=== PATIENT | female | born 1930 | race Caucasian/White ===

== ENCOUNTER 2017-03-26 09:39 | Emergency (ER) | payer MEDICARE, OTHER ==
[~2017-03-26] VITALS: Ht 149.9 cm; Wt 56.2 kg
[~2017-03-26 09:39] MED LIST: ACET325T9 PO; AMLO1TAB95 PO; ASPI-482 PO; ATOR20TA58 PO; CALC-326 PO; CITA40TA5 PO; FURO20TA3 PO; FURO40TA4 PO; GUAI600T47 PO; LACT1CAP6 PO; MIRT15TA3 PO; OMEP40CA5 PO; POTA10IV IV; RALO60TA PO; VIT1TABL32 PO
--- NOTE | 2017-03-26 09:59 | PHYS DOC ---
Past Medical History Past Medical History: Anxiety, Arthritis, Depression, GERD, Hypertension, Hypothyroid Additional Past Medical Histor: OSTEOPOROSIS Past Surgical History: Hip Replacement, Other Additional Past Surgical Histo: Plates bilat elbows,Thyroid,R)ovary removed. Alcohol Use: None Drug Use: None Adult General Chief Complaint Chief Complaint: MECHANICAL FALL HPI HPI Patient is a 87 year old female with history of hypothyroidism, hypertension, anxiety, arthritis, who presents today from a [facility] status post falling. Patient states she was transferring herself from her wheelchair to the toilet when she slipped and fell. Patient denies any loss of consciousness. Patient states she has a contusion to the forehead and is complaining of mild right hip pain and right forearm pain. Review of Systems Review of Systems Constitutional: Denies fever or chills [] Eyes: Denies change in visual acuity, redness, or eye pain [] HENT: Denies nasal congestion or sore throat [] Respiratory: Denies cough or shortness of breath [] Cardiovascular: No additional information not addressed in HPI [] GI: Denies abdominal pain, nausea, vomiting, bloody stools or diarrhea [] : Denies dysuria or hematuria [] Musculoskeletal: Right hip pain and right forearm pain Integument: Right forearm abrasions Neurologic: Forehead contusion Current Medications Current Medications Current Medications Medications (Trade) Dose Ordered Sig/Allen Start Time Stop Time Status Last Admin Dose Admin Diphtheria/ Tetanus/Acell Pertussis (Boostrix) 0.5 ml ONCE ONCE 03/26/17 10:00 03/26/17 10:01 DC 03/26/17 10:19 0.5 ML Fentanyl Citrate (Fentanyl 2ml Vial) 25 mcg 1X ONCE 03/26/17 10:00 03/26/17 10:01 DC 03/26/17 10:20 25 MCG Neomycin/ Polymyxin/ Bacitracin (Triple Antibiotic Ointment) 2 pkt 1X ONCE 03/26/17 10:00 03/26/17 10:01 DC 03/26/17 10:19 2 PKT Allergies Allergies Allergies Coded Allergies Type Severity Reaction Last Updated Verified adhesive Allergy Intermediate redness/hives 02/07/15 Yes Physical Exam Physical Exam Constitutional: Well developed, well nourished, no acute distress, non-toxic appearance. [] HENT: Normocephalic, atraumatic, bilateral external ears normal, oropharynx moist, no oral exudates, nose normal. [] Eyes: PERRLA, EOMI, conjunctiva normal, no discharge. [] Neck: Normal range of motion, no tenderness, supple, no stridor. [] Cardiovascular:Heart rate regular rhythm, no murmur [] Lungs & Thorax: Bilateral breath sounds clear to auscultation [] Abdomen: Bowel sounds normal, soft, no tenderness, no masses, no pulsatile masses. [] Skin: Warm, dry, small areas of abrasions noted on patient's forearm and dorsal hand. Small contusion noted on the right forehead. Back: No tenderness, no CVA tenderness. [] Extremities: Hip is stabilized with a pair of sheets, no obvious deformity noted on bilateral lower extremities. Mild tenderness noted on palpation of the right lateral hip. Limited range of motion to the hips due to pain. +2 bilateral pedal pulses. Cap refill less than 2 seconds bilateral lower extremities. Full range of motion of the right upper extremity. Neurovascular exam intact to the right upper extremity. Neurologic: Alert and oriented X 3, normal motor function, normal sensory function, no focal deficits noted. Cranial nerves II through XII intact Psychologic: Affect normal, judgement normal, mood normal. [] Current Patient Data Vital Signs Vital Signs Date Time Temp Pulse Resp B/P (MAP) Pulse Ox O2 Delivery O2 Flow Rate FiO2 03/26/17 10:59 64 18 147/67 (93) 94 Room Air 03/26/17 09:39 97.8 97.8 EKG EKG [] Radiology/Procedures Radiology/Procedures []PROCEDURE: FOREARM RIGHT; SHOULDER 2+V RIGHT Right shoulder, 3 views, 03/26/2017: History: Trauma, pain The bony structures are demineralized. No fracture or dislocation is identified. There are mild degenerative changes at the shoulder. IMPRESSION: 1. Demineralization. 2. No acute bony abnormality is detected. Right forearm, 2 views, 03/26/2017: The bony structures are demineralized. No forearm fracture is identified. There is a surgical screw related to the distal humerus. There are degenerative changes at the elbow joint. IMPRESSION: No acute bony abnormality is detected. DICTATED and SIGNED BY: CLAUDIO RAMOS MD DATE: 03/26/17 1106 CC: GUILHERME PETERSON MD; KIARA DAS APRN ~ PROCEDURE: CT HEAD AND CERVICAL SPINE WO CT of the head without contrast, 03/26/2017: History: Fall, forehead hematoma Comparison is made to a study from 05/26/2015. There is a moderate-sized scalp hematoma in the right frontal region. No underlying fracture is identified. There is moderate cerebral atrophy. There are mild bilateral deep white matter lucencies compatible with chronic ischemic change. The ventricles are mildly prominent on a compensatory basis. There is no evidence of acute intracranial hemorrhage or mass effect. IMPRESSION: 1. Chronic findings as described above. 2. No acute intracranial abnormality is detected. CT of the cervical spine without contrast, 03/26/2017: Noncontrast scans were obtained with multiplanar reconstructions produced. There is disc space narrowing with moderate marginal spurring throughout the mid and lower cervical spine. There are moderate hypertrophic degenerative changes involving multiple facet joints bilaterally. There is moderate degenerative change at the C1-2 articulation with moderate ligamentous thickening along the posterior aspect of the odontoid process. No acute fracture or dislocation is identified. The spurring is causing foraminal encroachment bilaterally particularly at C3-4 and C4-5. No high-grade central spinal stenosis is evident. Incidental note is made that the left lobe of the thyroid gland is enlarged, heterogeneous and contains calcifications. IMPRESSION: 1. Moderately severe multilevel degenerative change. 2. No acute bony abnormality is detected. PQRS Compliance Statement: One or more of the following individualized dose reduction techniques were utilized for this examination: 1. Automated exposure control 2. Adjustment of the mA and/or kV according to patient size 3. Use of iterative reconstruction technique DICTATED and SIGNED BY: CLAUDIO RAMOS MD DATE: 03/26/17 1016 CC: GUILHERME PETERSON MD; KIARA DAS APRN ~ Course & Med Decision Making Course & Med Decision Making Pertinent Labs and Imaging studies reviewed. (See chart for details) This is a 87-year-old female patient coming from a [facility] status post falling this morning. Patient states she was transferring from her wheelchair to the toilet when she fell. Patient denies any loss of consciousness. Patient is alert and oriented 3. CT of the head and cervical spine were negative for any acute findings. X-rays of the right hip with pelvic were negative for any acute findings, x-rays of the right upper extremity were negative for any acute findings. Patient was [facility] to the [facility]. Tylenol recommended for pain. Recommended nursing staff at the [facility] to help patient with transfers. Dragon Disclaimer Dragon Disclaimer This electronic medical record was generated, in whole or in part, using a voice recognition dictation system. Departure Departure Impression: Primary Impression: Fall from standing Additional Impressions: Forehead contusion Contusion of upper limb, right Contusion of right hip Superficial bruising of upper limb Disposition: 01 HOME, SELF-CARE Condition: STABLE Referrals: GUILHERME PETERSON MD (PCP) follow up with your doctor in one week Patient Instructions: Contusion, [id number], Fall Prevention and Home Safety Additional Instructions: Sri Correia was seen status post falling. Please provided this patient with assistance in all her transfers. Her x-rays of the right upper extremity, right hip with bilateral pelvic, and CT of the head and cervical spine were negative for any acute findings. She is to follow-up with her own doctor in one week. Apply ice to the forehead contusion 15 minutes on and 15 minutes. Apply Neosporin to the bruises twice a day. Problem Qualifiers Primary Impression: Fall from standing Encounter type: initial encounter Qualified Codes: W19.XXXA - Unspecified fall, initial encounter Additional Impressions: Forehead contusion Encounter type: initial encounter Qualified Codes: S00.83XA - Contusion of other part of head, initial encounter Contusion of upper limb, right Encounter type: initial encounter Qualified Codes: S40.021A - Contusion of right upper arm, initial encounter Contusion of right hip Encounter type: initial encounter Qualified Codes: S70.01XA - Contusion of right hip, initial encounter Superficial bruising of upper limb Encounter type: initial encounter Laterality: right Qualified Codes: S40.021A - Contusion of right upper arm, initial encounter KIARA DAS APRN Mar 26, 2017 09:59
[2017-03-26] MEDS ORDERED: fentaNYL PF VIAL 100 MCG/2 ML VIAL IM ONE (10:00)
[2017-03-26] MEDS ORDERED: NEOMY/BACITR/POLYMYXIN OINT PACKET. TP ONE (10:00)
[2017-03-26] MEDS ORDERED: DIPHTH,PERTUSS(ACELL),TET TOX 0.5 ML DISP.SYRIN. VAX IM ONE (10:00)
--- NOTE | 2017-03-26 10:26 | RAD ---
CT of the head without contrast, 03/26/2017: History: Fall, forehead hematoma Comparison is made to a study from 05/26/2015. There is a moderate-sized scalp hematoma in the right frontal region. No underlying fracture is identified. There is moderate cerebral atrophy. There are mild bilateral deep white matter lucencies compatible with chronic ischemic change. The ventricles are mildly prominent on a compensatory basis. There is no evidence of acute intracranial hemorrhage or mass effect. IMPRESSION: 1. Chronic findings as described above. 2. No acute intracranial abnormality is detected. CT of the cervical spine without contrast, 03/26/2017: Noncontrast scans were obtained with multiplanar reconstructions produced. There is disc space narrowing with moderate marginal spurring throughout the mid and lower cervical spine. There are moderate hypertrophic degenerative changes involving multiple facet joints bilaterally. There is moderate degenerative change at the C1-2 articulation with moderate ligamentous thickening along the posterior aspect of the odontoid process. No acute fracture or dislocation is identified. The spurring is causing foraminal encroachment bilaterally particularly at C3-4 and C4-5. No high-grade central spinal stenosis is evident. Incidental note is made that the left lobe of the thyroid gland is enlarged, heterogeneous and contains calcifications. IMPRESSION: 1. Moderately severe multilevel degenerative change. 2. No acute bony abnormality is detected. PQRS Compliance Statement: One or more of the following individualized dose reduction techniques were utilized for this examination: 1. Automated exposure control 2. Adjustment of the mA and/or kV according to patient size 3. Use of iterative reconstruction technique
--- NOTE | 2017-03-26 11:08 | RAD ---
Pelvis with right hip, 3 views, 03/26/2017: History: Fall, pain The bony structures are demineralized. There are bilateral bipolar hip prostheses in place. No acute fracture or dislocation is identified. There are mild periarticular dystrophic calcifications on the right. Degenerative changes are noted in the lower lumbar spine. IMPRESSION: 1. Demineralization. 2. Bilateral hip prostheses are in satisfactory positions. 3. No acute bony abnormality is detected.
--- NOTE | 2017-03-26 11:10 | RAD ---
Right shoulder, 3 views, 03/26/2017: History: Trauma, pain The bony structures are demineralized. No fracture or dislocation is identified. There are mild degenerative changes at the shoulder. IMPRESSION: 1. Demineralization. 2. No acute bony abnormality is detected. Right forearm, 2 views, 03/26/2017: The bony structures are demineralized. No forearm fracture is identified. There is a surgical screw related to the distal humerus. There are degenerative changes at the elbow joint. IMPRESSION: No acute bony abnormality is detected.
[2017-03-26 11:52] VITALS: BP 142/65
--- NOTE | 2017-03-26 11:57 | RAD ---
Right hand, 3 views, 03/26/2017: History: Fall, pain The exam is suboptimal as the patient was unable to straighten all of her fingers. There is severe bony demineralization. No acute fracture is identified. There are moderate degenerative changes at scattered interphalangeal joints and along the radial aspect of the wrist. IMPRESSION: 1. Severe bony demineralization. 2. No acute bony abnormality is detected, although patient positioning is suboptimal.
== END 2017-03-26 12:03 | disposition home or self-care (01) ==
LOC: ER 09:39
DX: S00.83XA Contusion of other part of head, initial encounter (principal); S40.021A Contusion of right upper arm, initial encounter; S70.01XA Contusion of right hip, initial encounter; S50.811A Abrasion of right forearm, initial encounter; S60.511A Abrasion of right hand, initial encounter; F41.9 Anxiety disorder, unspecified; M19.90 Unspecified osteoarthritis, unspecified site; K21.9 Gastro-esophageal reflux disease without esophagitis; I10 Essential (primary) hypertension; E03.9 Hypothyroidism, unspecified; M81.0 Age-related osteoporosis without current pathological fracture; F32.9 Major depressive disorder, single episode, unspecified; Z91.048 Other nonmedicinal substance allergy status; W01.0XXA Fall on same level from slipping, tripping and stumbling without subsequent striking against object, initial encounter; Y93.89 Activity, other specified; Y92.129 Unspecified place in nursing home as the place of occurrence of the external cause; Y99.8 Other external cause status
CPT/HCPCS: 70450; 72125; 73030; 73090; 73130; 73502; 90471; 90715; 96372; 99284; J3010

== ENCOUNTER 2017-04-21 14:37 | Emergency (ER) | payer MEDICARE, OTHER ==
[2017-04-21 14:49] VITALS: BP 159/65
[2017-04-21] MEDS ORDERED: DIPHTH,PERTUSS(ACELL),TET TOX 0.5 ML DISP.SYRIN. VAX IM ONE (15:30)
--- NOTE | 2017-04-21 15:31 | PHYS DOC ---
Past Medical History Past Medical History: Anxiety, Arthritis, Depression, GERD, High Cholesterol, Hypertension, Hypothyroid Additional Past Medical Histor: OSTEOPOROSIS, contracture R hand, insomnia Past Surgical History: Hip Replacement, Other Additional Past Surgical Histo: Plates bilat elbows,Thyroid,R)ovary removed. Alcohol Use: None Drug Use: None Adult General Chief Complaint Chief Complaint: MECHANICAL FALL HPI HPI Patient is a pleasant 87-year-old female with a history of hyperlipidemia, hypertension, major depressive disorder, contracture of the right hand, anxiety disorder, constipation, difficulty walking, reflux, insomnia, generalized weakness who presents with a fall from standing. She is in her home which is an assisted living facility she lives by her self and she expresses up and fall from a standing position hitting her head on a coffee table. She denies any loss of conscious, denies any seizure activity after the event. Denies any amnesia to the event. Patient has had multiple falls over last several weeks for similar presentation. She denies chest pain, abdominal pain before after event. Also denies any new neurologic deficits to include weakness or numbness and tingling of the extremities prior or after the events. Patient is not on any blood thinning medications per report or on the group home paperwork provided with EMS evaluation. Pain is minimal at this point but primarily over the posterior left scalp over the parietal lobe and in the neck. Patient denies any paresthesias even transiently. Review of Systems Review of Systems Constitutional: Denies fever or chills [] Eyes: Denies change in visual acuity, redness, or eye pain [] HENT: Denies nasal congestion or sore throat [] Respiratory: Denies cough or shortness of breath [] Cardiovascular: No additional information not addressed in HPI [] GI: Denies abdominal pain, nausea, vomiting, bloody stools or diarrhea [] : Denies dysuria or hematuria [] Musculoskeletal: Patient mainly complains of neck pain and mild headache. Integument: Denies rash or skin lesions [] Neurologic: She has a complaint of headache over the heart scalp she hit on the coffee table without, focal weakness or sensory changes [] Endocrine: Denies polyuria or polydipsia [] Current Medications Current Medications Current Medications Medications (Trade) Dose Ordered Sig/Allen Start Time Stop Time Status Last Admin Dose Admin Acetaminophen (Tylenol) 1,000 mg 1X ONCE 04/21/17 15:45 04/21/17 15:46 DC 04/21/17 15:42 1,000 MG Diphtheria/ Tetanus/Acell Pertussis (Boostrix) 0.5 ml ONCE ONCE 04/21/17 15:30 04/21/17 15:31 DC 04/21/17 15:38 0.5 ML Allergies Allergies Allergies Coded Allergies Type Severity Reaction Last Updated Verified adhesive Allergy Intermediate redness/hives 02/07/15 Yes Physical Exam Physical Exam Vital signs recorded on the chart patient noted to be hypertensive which is chronic for patient. Constitutional: Well developed, well nourished, patient is no acute distress mildly cachectic but awake alert and oriented 4 and spry for age. HENT: Normocephalic, scalp laceration noted over the left posterior occiput measuring about 1.7 cm x 2 cm and a stable pattern bilateral external ears normal, oropharynx moist, no oral exudates, nose normal. No hemotympanum [] Eyes: PERRLA, EOMI, conjunctiva normal, no discharge. [] Neck: Normal range of motion, patient does exhibit some mild tenderness to palpation over C7 C8. Cardiovascular:Heart rate regular rhythm, no murmur [] Lungs & Thorax: Bilateral breath sounds clear to auscultation [] Abdomen: Bowel sounds normal, soft, no tenderness, no masses, no pulsatile masses. [] Skin: Warm, dry, no erythema, no rash. [] Back: No tenderness, no CVA tenderness. [] Extremities: No tenderness, no cyanosis, no clubbing, ROM intact, no edema. [] Neurologic: Alert and oriented X 3, normal motor function, normal sensory function, no focal deficits noted. [] Psychologic: Affect normal, judgement normal, mood normal. [] Current Patient Data Vital Signs Vital Signs Date Time Temp Pulse Resp B/P (MAP) Pulse Ox O2 Delivery O2 Flow Rate FiO2 04/21/17 14:49 97.5 78 18 159/65 (96) 90 Room Air 97.5 EKG EKG [] Radiology/Procedures Radiology/Procedures [] [facility] [address] [place] [address] IMAGING REPORT Signed PATIENT: PIA REINOSO ACCOUNT: [id number] : 1930 LOCATION: ER AGE: 87 SEX: F EXAM STATUS: REG ER ORD. PHYSICIAN: RYANN HEREDIA MD REASON: trauma PROCEDURE: CT HEAD AND CERVICAL SPINE WO CT HEAD WITHOUT [id number]/16/2017 5:27 PM Indication: Head trauma Comparison: CT of the head without contrast March 26, 2017 Procedure: Multidetector CT imaging of the head was performed without the administration of contrast. Findings: Senescent changes including global atrophy and changes of chronic small vessel disease are similar. There is no evidence of acute intracranial hemorrhage. There is no evidence of acute territorial infarction. Please note that CT is limited for evaluation of acute ischemia. No mass effect or midline shift is identified . The ventricles and basilar cisterns have a stable appearance. No new abnormal extra-axial fluid collections are seen. No acute osseous changes are identified. Small right posterior scalp hematoma noted. Impression: No evidence of acute intracranial abnormality CT of the cervical spine without contrast 04/21/2017 Indication: Head trauma Comparison study: CT of the cervical spine March 26, 2017. Procedure: Multidetector CT imaging of cervical spine was performed without contrast Findings: No evidence of acute fracture or alignment abnormality of the cervical spine is identified. Diffuse osteopenia is noted. This is similar to prior exam. Note that the degree of osteopenia can limit sensitivity of CT for nondisplaced fractures. Grossly stable appearing degenerative changes of the cervical spine are noted. The craniocervical junction are unchanged. Vertebral body heights appear preserved. Diffuse disc space narrowing diffuse facet arthrosis is similar to comparison exam. Enlargement of the left thyroid gland is again noted, similar to prior study. Impression: Degenerative changes of the cervical spine without evidence of acute fracture or alignment abnormality. PQRS Compliance Statement: One or more of the following individualized dose reduction techniques were utilized for this examination: 1. Automated exposure control 2. Adjustment of the mA and/or kV according to patient size 3. Use of iterative reconstruction technique DICTATED and SIGNED BY: THOMAS LLOYD MD DATE: 04/21/17 1602 CC: MARE FRAUSTO MD; RYANN HEREDIA MD Course & Med Decision Making Course & Med Decision Making Pertinent Labs and Imaging studies reviewed. (See chart for details) EKG timed 1450 p.m. 04/21/2017 demonstrates normal sinus rhythm with a p.m. QRS heart rate of 76 OH interval 134 which is normal, QRS width of 77 normal, QTC which is normal for her age normal. Patient has not specific T wave flattening in all leads, premature atrial contractions on occasion. No evidence of ST segment depression or similar elevation consistent with ischemia. EKG read by me [] Patient had a mechanical fall from standing at her place of living. She denies any loss of consciousness and her neuro exam on initial presentation was normal and at baseline. Patient has clear memories of the injury. Denies any seizure activity or pedal blood thinning medication. CT scan of the head and neck were ordered upon arrival as well as irrigation and cleaning of the wound of the scalp which will need repair. CT scan at approximately 4:[address] of the neck and had been returned demonstrating no acute injury to the brain no skull fracture no C-spine fracture. Patient's EKG was reviewed Patient is resting comfortably given oral Tylenol for discomfort. Procedure note: Scalp repair, verbal consent. Patient had wound prepped with chlorhexidine, and manual scrubbing. Patient has no evidence of step-offs or skull fracture there is no galeal involvement. Patient has no foreign body no active bleeding at the time of evaluation. She had her scalp laceration repaired with benji in rapid succession well tolerated by the patient isn't had 5 individual benji placed. Unfortunately the laceration was witnessed daily laceration within skin she will need to have some of the wound repaired by secondary intention.. Dragon Disclaimer Dragon Disclaimer This electronic medical record was generated, in whole or in part, using a voice recognition dictation system. Departure Departure Impression: Primary Impression: Fall from standing Additional Impressions: Occipital scalp laceration Scalp contusion Abnormal EKG Disposition: 01 HOME, SELF-CARE Condition: IMPROVED Referrals: GUILHERME PETERSON MD (PCP) Patient Instructions: Facial or Scalp Contusion, Head Injury, Adult, Laceration Care, Adult, Scalp Hematoma Additional Instructions: My discharge plan Follow up: In addition patient is asked to followup with their primary doctor, within a week for followup examination and to address patient's ongoing medical conditions. Patient is advised that in the Emergency Department primary complaints are addressed and only in light of known signs and symptoms. Patient should return immediately to the emergency department if new signs and symptoms develop or patient's condition worsens in any way. At time of discharge patient was in stable condition and had verbalized understanding of the discharge instructions. Scripts Acetaminophen (TYLENOL) 325 Mg Tablet 1-2 TAB PO QID, #60 TAB 0 Refills Prov: RYANN HEREDIA MD 04/21/17 Problem Qualifiers RYANN HEREDIA MD Apr 21, 2017 15:31
[2017-04-21] MEDS ORDERED: ACETAMINOPHEN 500 MG TABLET PO ONE (15:45)
--- NOTE | 2017-04-21 16:10 | RAD ---
CT HEAD WITHOUT [id number]/16/2017 5:27 PM Indication: Head trauma Comparison: CT of the head without contrast March 26, 2017 Procedure: Multidetector CT imaging of the head was performed without the administration of contrast. Findings: Senescent changes including global atrophy and changes of chronic small vessel disease are similar. There is no evidence of acute intracranial hemorrhage. There is no evidence of acute territorial infarction. Please note that CT is limited for evaluation of acute ischemia. No mass effect or midline shift is identified . The ventricles and basilar cisterns have a stable appearance. No new abnormal extra-axial fluid collections are seen. No acute osseous changes are identified. Small right posterior scalp hematoma noted. Impression: No evidence of acute intracranial abnormality CT of the cervical spine without contrast 04/21/2017 Indication: Head trauma Comparison study: CT of the cervical spine March 26, 2017. Procedure: Multidetector CT imaging of cervical spine was performed without contrast Findings: No evidence of acute fracture or alignment abnormality of the cervical spine is identified. Diffuse osteopenia is noted. This is similar to prior exam. Note that the degree of osteopenia can limit sensitivity of CT for nondisplaced fractures. Grossly stable appearing degenerative changes of the cervical spine are noted. The craniocervical junction are unchanged. Vertebral body heights appear preserved. Diffuse disc space narrowing diffuse facet arthrosis is similar to comparison exam. Enlargement of the left thyroid gland is again noted, similar to prior study. Impression: Degenerative changes of the cervical spine without evidence of acute fracture or alignment abnormality. PQRS Compliance Statement: One or more of the following individualized dose reduction techniques were utilized for this examination: 1. Automated exposure control 2. Adjustment of the mA and/or kV according to patient size 3. Use of iterative reconstruction technique
[2017-04-21] MEDS ORDERED: ACET325T9 PO (16:29)
--- NOTE | 2017-04-21 16:53 | EKG ---
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
== END 2017-04-21 18:03 | disposition home or self-care (01) ==
LOC: ER 14:37
DX: S01.01XA Laceration without foreign body of scalp, initial encounter (principal); R94.31 Abnormal electrocardiogram [ECG] [EKG]; E78.00 Pure hypercholesterolemia, unspecified; E03.9 Hypothyroidism, unspecified; I10 Essential (primary) hypertension; F32.9 Major depressive disorder, single episode, unspecified; F41.9 Anxiety disorder, unspecified; K21.9 Gastro-esophageal reflux disease without esophagitis; M81.0 Age-related osteoporosis without current pathological fracture; M19.90 Unspecified osteoarthritis, unspecified site; Z88.8 Allergy status to other drugs, medicaments and biological substances; W18.39XA Other fall on same level, initial encounter; Y93.89 Activity, other specified; Y99.8 Other external cause status; Y92.89 Other specified places as the place of occurrence of the external cause
CPT/HCPCS: 12002; 70450; 72125; 90471; 90715; 93005; 99284-25

== ENCOUNTER 2017-06-24 08:42 | Emergency (ER) | payer MEDICARE, OTHER ==
[~2017-06-24] VITALS: Ht 157.5 cm; Wt 56.2 kg
[~2017-06-24 08:42] MED LIST changes: +ALPR1TAB2 PO; +BREO ELLIPTA 11 EACH IH; +CARB1TAB2 PO; +DEXT15DR5 EACHEYE; +DICL100G18 TP; +FERR-26 PO; +FLUT12AE IH; +FLUT9.9S NS; +HYDR-2758 PO; +LIDO700A39 TP; +LUBI8CAP4 PO; +LUTE1CAP5 PO; +MAGN400O7 PO; +MELA3TAB2 PO; +MONT10TA6 PO; +NITR100C62 PO; +ONDA4TAB7 PO; +PANT40TA3 PO; +POLY17PO29 PO; +VIT1CAPS12 PO
[2017-06-24] MEDS ORDERED: IV NORMAL SALINE 500ML BAG 500 ML IV ONE (08:45)
--- NOTE | 2017-06-24 08:56 | PHYS DOC ---
Past Medical History Past Medical History: Anxiety, Arthritis, Depression, GERD, High Cholesterol, Hypertension, Hypothyroid Additional Past Medical Histor: OSTEOPOROSIS, contracture R hand, insomnia Past Surgical History: Hip Replacement, Other Additional Past Surgical Histo: Plates bilat elbows,Thyroid,R)ovary removed. Alcohol Use: None Drug Use: None Adult General Chief Complaint Chief Complaint: MECHANICAL FALL HPI HPI Patient is a pleasant 87-year-old female who is coming from [facility] presents with an acute injury to her left shoulder her bilateral elbows and her left hip after a fall from standing. 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 She normally walks with assistance and had a nurse aide in the room with her who helped sit her down on the bathroom. When she was attempting to stand up she lost her balance striking her left shoulder and her elbows and landing on her left hip. She denies any head injury or loss of consciousness but admits she's had 3 falls over the last several days with various skin injuries and soreness to her elbows and her left hip. She denies any change in memory, denies any focal neurologic deficits, denies any headache, change in vision, problems speaking, but she is not quite sure the events that occurred around her fall today. She's had prior head injuries recently within the last several weeks. She denies any abuse at the facility, denies any homicidal or suicidal ideations at this time. Pain is mild to moderate in her elbows and hip and left shoulder but denies any need of medications at this time from review of her records patient does not seem to be in any blood thinning medications. Patient is being treated presently for a UTI and is just started steroid course. Review of Systems Review of Systems Constitutional: Denies fever or chills [] Eyes: Denies change in visual acuity, redness, or eye pain [] HENT: Denies nasal congestion or sore throat [] Respiratory: Denies cough or shortness of breath [] Cardiovascular: No additional information not addressed in HPI [] GI: Denies abdominal pain, nausea, vomiting, bloody stools or diarrhea [] : Denies dysuria or hematuria [] Musculoskeletal: Denies back pain but she is having left shoulder pain, left hip pain, bilateral elbow pain, without neck pain or headache. itegument: Denies rash or skin lesions patient has multiple abrasions and abrasions on her upper extremities from prior falls. She's had multiple skin tears as well[] Neurologic: Denies headache, focal weakness or sensory changes patient has contractures in upper external is bilaterally with muscle weakness, this is chronic in nature nothing new. [] Endocrine: Denies polyuria or polydipsia [] All other systems were reviewed and found to be within normal limits, except as documented in this note. Current Medications Current Medications Current Medications Medications (Trade) Dose Ordered Sig/Allen Start Time Stop Time Status Last Admin Dose Admin Sodium Chloride 500 ml @ 500 mls/hr 1X ONCE 06/24/17 08:45 06/24/17 09:44 DC 06/24/17 10:06 500 MLS/HR Allergies Allergies Allergies Coded Allergies Type Severity Reaction Last Updated Verified adhesive Allergy Intermediate redness/hives 02/07/15 Yes Physical Exam Physical Exam Constitutional: Well developed, well nourished, patient is thin but well- nourished in no acute distress nontoxic in appearance there is no obvious signs of deformity to her frontal scalp and face. HENT: Normocephalic, atraumatic, she has a well-healing scar and scab on the posterior occiput on the right bilateral external ears normal, he is TMs are clear bilaterally with no evidence of hemotympanum. Oropharynx dry, no oral exudates, nose normal. [] Eyes: PERRLA, EOMI, conjunctiva normal, no discharge. [] Neck: Normal range of motion, no tenderness, supple, no stridor. [] Cardiovascular:Heart rate regular rhythm, no murmur [] Lungs & Thorax: Bilateral breath sounds clear to auscultation [] Abdomen: Bowel sounds normal, soft, no tenderness, no masses, no pulsatile masses. [] Skin: Warm, dry, no erythema, no rash. There are multiple areas of bruises and skin abrasions on the upper shoulders bilaterally and elbows. She has a small contusion abrasion to the lateral aspect of the left shoulder Back: No tenderness, no CVA tenderness. [] Extremities: Patient has tenderness to palpation of the lateral aspect of the left shoulder with decreased range of motion with no obvious deformity. She has some small linear abrasions as well as contusions. Patient has tenderness to palpation over the lateral aspect of each elbow with no obvious deformity no decreased range of motion or pain with radial axial loading of the joint. Patient has some tenderness to palpation with negative pelvic rock, but she does have tenderness to palpation of the anterior superior iliac spine and the left with no obvious bruising or deformity. Neurologic: Alert and oriented X 3, normal motor function, normal sensory function, no focal deficits noted. She seems oriented person place and time but unfortunately is confused about other people in the room[] Psychologic: Affect normal, judgement normal, mood normal. She is smiling and telling jokes she seems to be nontoxic in appearance [] Current Patient Data Vital Signs Vital Signs Date Time Temp Pulse Resp B/P (MAP) Pulse Ox O2 Delivery O2 Flow Rate FiO2 06/24/17 10:03 82 24 98 06/24/17 08:42 98.4 193/83 (119) Room Air 98.4 Lab Values Laboratory Tests Test 06/24/17 09:05 White Blood Count 9.8 x10^3/uL (4.0-11.0) Red Blood Count 3.84 x10^6/uL (3.50-5.40) Hemoglobin 12.3 g/dL (12.0-15.5) Hematocrit 37.2 % (36.0-47.0) Mean Corpuscular Volume 97 fL (79-100) Mean Corpuscular Hemoglobin 32 pg (25-35) Mean Corpuscular Hemoglobin Concent 33 g/dL (31-37) Red Cell Distribution Width 15.4 % (11.5-14.5) H Platelet Count 223 x10^3/uL (140-400) Neutrophils (%) (Auto) 93 % (31-73) H Lymphocytes (%) (Auto) 5 % (24-48) L Monocytes (%) (Auto) 2 % (0-9) Eosinophils (%) (Auto) 0 % (0-3) Basophils (%) (Auto) 0 % (0-3) Neutrophils # (Auto) 9.2 x10^3uL (1.8-7.7) H Lymphocytes # (Auto) 0.4 x10^3/uL (1.0-4.8) L Monocytes # (Auto) 0.2 x10^3/uL (0.0-1.1) Eosinophils # (Auto) 0.0 x10^3/uL (0.0-0.7) Basophils # (Auto) 0.0 x10^3/uL (0.0-0.2) Platelet Estimate Pending Sodium Level 143 mmol/L (136-145) Potassium Level 3.6 mmol/L (3.5-5.1) Chloride Level 106 mmol/L (98-107) Carbon Dioxide Level 26 mmol/L (21-32) Anion Gap 11 (6-14) Blood Urea Nitrogen 13 mg/dL (7-20) Creatinine 0.9 mg/dL (0.6-1.0) Estimated GFR (Cockcroft-Gault) 59.0 Glucose Level 88 mg/dL (70-99) Calcium Level 8.7 mg/dL (8.5-10.1) Total Bilirubin 0.4 mg/dL (0.2-1.0) Direct Bilirubin 0.1 mg/dL (0.0-0.2) Aspartate Amino Transferase (AST) 25 U/L (15-37) Alanine Aminotransferase (ALT) 12 U/L (14-59) L Alkaline Phosphatase 77 U/L (46-116) Troponin I Quantitative 0.018 ng/mL (0.000-0.055) Total Protein 6.5 g/dL (6.4-8.2) Albumin 3.2 g/dL (3.4-5.0) L Laboratory Tests 06/24/17 09:05 Laboratory Tests 06/24/17 09:05 EKG EKG []EKG read by me 8:59 AM 06/24/2017 demonstrates heart rate of 76, there is a P wave there were QRS this is normal sinus rhythm with a left axis deviation, she has left ventricular hypertrophy looking in aVL greater than 11 mV, DC intervals 122 which is normal, uterus with a 74 which is normal, QTc is mildly prolongated at 484, there is some movement artifact noted but no ST segment or T -wave changes consistent with acute ischemia Radiology/Procedures Radiology/Procedures [] IMAGING REPORT Signed PATIENT: PIA REINOSO ACCOUNT: [id number] : 1930 LOCATION: ER AGE: 87 SEX: F EXAM STATUS: REG ER ORD. PHYSICIAN: RYANN HEREDIA MD REASON: fall from standing PROCEDURE: SHOULDER 2+V LEFT Indication: Left shoulder pain, fall. Time of exam 0946 hours. Glenohumeral and acromial clavicular alignment are normal. Acromiohumeral space is normal. No fracture or dislocation is seen. Impression: No acute bony abnormality is detected. DICTATED and SIGNED BY: DEL LYONS MD DATE: 06/24/17951 CC: MARE FRAUSTO MD; RYANN HEREDIA MD ~ [id number] [place] [address] IMAGING REPORT Signed PATIENT: PIA REINOSO ACCOUNT: [id number] : 1930 LOCATION: ER AGE: 87 SEX: F EXAM STATUS: REG ER ORD. PHYSICIAN: RYANN HEREDIA MD REASON: fall PROCEDURE: ELBOW BILAT 3V Indication: Fall with bilateral elbow pain. Time of exam 0946 hours. Multiple views of bilateral elbows were obtained. Postsurgical changes to the right elbow are identified. There is a partially threaded screw extending through the distal humerus. The radial head is subluxed slightly anteriorly, chronicity indeterminate. There are severe degenerative changes at the elbow with marked joint space narrowing and spurring present. Left elbow demonstrates a plate and screws transfixing the distal humerus. Elbow alignment is normal. No acute fracture is seen. The hardware is intact. Impression: Postsurgical changes bilaterally. There are severe degenerative changes to the right elbow. There is subluxation of the right radial head in relation to the capitulum, chronicity indeterminate. No fractures are seen. DICTATED and SIGNED BY: DEL LYONS MD DATE: 06/24/17954 CC: MARE FRAUSTO MD; RYANN HEREDIA MD ~ [id number] [place] [address] IMAGING REPORT Signed PATIENT: PIA REINOSO ACCOUNT: [id number] : 1930 LOCATION: ER AGE: 87 SEX: F EXAM STATUS: REG ER ORD. PHYSICIAN: RYANN HEREDIA MD REASON: fall PROCEDURE: CT HEAD AND CERVICAL SPINE WO Indication: Fall with altered mental status. Axial imaging through the brain and cervical spine was performed without contrast. Sagittal and coronal reformations were also performed. CT brain: Comparison is made with prior CT from 04/21/2017. The ventricular size and sulcal pattern are stable. Moderate periventricular hypodensity is noted consistent with senescent change. No sulcal effacement, midline shift or hemorrhage is detected. The cisterns are patent. The visualized paranasal sinuses are clear. Impression: Senescent change. No acute intracranial process is detected. CT cervical spine: Curvature and alignment is normal. There is generalized demineralization. Multilevel degenerative disc disease with disc space narrowing and marginal spurring is noted. The prevertebral tissues are normal. No fractures are seen. The odontoid appears intact. Impression: Cervical spondylosis. No acute bony abnormality is detected. PQRS Compliance Statement: One or more of the following individualized dose reduction techniques were utilized for this examination: 1. Automated exposure control 2. Adjustment of the mA and/or kV according to patient size 3. Use of iterative reconstruction technique DICTATED and SIGNED BY: DEL LYONS MD DATE: 06/24/17 1010 CC: MARE FRAUSTO MD; RYANN HEREDIA MD ~ [facility] [address] [place] [address] IMAGING REPORT Signed PATIENT: PIA REINOSO ACCOUNT: [id number] : 1930 LOCATION: ER AGE: 87 SEX: F EXAM STATUS: REG ER ORD. PHYSICIAN: RYANN HEREDIA MD REASON: fall PROCEDURE: HIP BILATERAL WITH PELVIS Indication: Fall with bilateral hip pain. Time of exam 0946 hours. Correlation is made with prior exam from 03/26/2017. Bilateral hip arthroplasties are noted. There appears to be some dystrophic or heterotopic ossification adjacent to the left hip. No fractures are seen. The rami appear intact. Impression: No acute feature detected. DICTATED and SIGNED BY: DEL LYONS MD DATE: 06/24/17 0954 CC: MARE FRAUSTO MD; RYANN HEREDIA MD ~ Course & Med Decision Making Course & Med Decision Making Pertinent Labs and Imaging studies reviewed. (See chart for details) []She presents with a mechanical fall from standing while attempted to get up from a toilet seat. She has had 3 falls in several days but demonstrates no specific focal loss there is no numbness and tingling but she does have marked tender to palpation over multiple joints. We will image each of those joints as well as head and neck to ensure that she does not have a subdural bleed or some intracranial catastrophe that will require intervention. Patient also have a CBC CMP and troponin completed to ensure that there are no other causes for her weakness and generalized falls. Patient tells me that their symptoms given during CC are improved. Patient is resting comfortably and I reviewed the laboratory work with her at the bedside her CBC is unremarkable without signs of anemia or elevated white blood cell count indicating infection or stress. Patient's troponin is negative, CMP is otherwise unremarkable, she has a negative set of electrolytes and BUN/ creatinine is normal, I reviewed patient's films of her elbows, her hip, and her shoulder which revealed no signs of fracture on any view. She has postsurgical changes in the elbows bilaterally but no acute new injury. Patient's CT of the head and neck and also reviewed by me read by radiology density chronic findings but no acute injury subluxation or fracture. At this point patient is resting comfortably her mentation is at baseline she is complaining of no discomfort requiring intervention. [facility] evaluation continued on her home medications and her antibiotics for her UTI. Dragon Disclaimer Dragon Disclaimer This electronic medical record was generated, in whole or in part, using a voice recognition dictation system. Departure Departure Impression: Primary Impression: Altered mental status Additional Impressions: Superficial bruising of upper limb Fall from standing Contusion of elbow, left Contusion of elbow, right Contusion of hip, left Disposition: 01 HOME, SELF-CARE Referrals: MARE FRAUSTO MD (PCP) Patient Instructions: Contusion, Elbow Contusion, Facial or Scalp Contusion, Fall Prevention and Home Safety, Hip Injury, Hip Pain, Iliac Crest Contusion Additional Instructions: discharge: I've spoken with the patient and/or caregivers. I've explained the patient's condition, diagnosis and treatment plan based on information available to me at this time. I've answered the patient's and/or caregivers questions and addressed any concerns. The patient and/or caregivers have a good understanding the patient's diagnosis, condition and treatment plan as can be expected at this point. Vital signs have been stabilized. The patient's condition is stable for discharge from the emergency department. The patient will pursue further outpatient evaluation with her primary care provider or other designated consulting physician as outlined in the discharge instructions. Patient and/or caregivers are agreeable to this plan of care and follow-up instructions have been explained in detail. The patient and/or caregivers have received these instructions in written format and expressed understanding of these discharge instructions. The patient and her caregivers are aware that if any significant change in condition or worsening of symptoms should prompt him to immediately return to this of the closest emergency department. If an emergent department is not readily available I would encourage him to call 911. Scripts Acetaminophen (TYLENOL) 325 Mg Tablet 1-2 TAB PO QID, #60 TAB 2 Refills Prov: RYANN HEREDIA MD 06/24/17 Problem Qualifiers RYANN HEREDIA MD Jun 24, 2017 08:56
[2017-06-24 09:15] LABS: BASO % 0 % (0-3); EOS % 0 % (0-3); HEMATOCRIT 37.2 % (36.0-47.0); HEMOGLOBIN 12.3 g/dL (12.0-15.5); LYMPH # 0.4 x10^3/uL (1.0-4.8); LYMPH % 5 % (24-48); MEAN CORPUSCULAR HEMOGLOBIN 32 pg (25-35); MEAN CORPUSCULAR HGB CONC 33 g/dL (31-37); MEAN CORPUSCULAR VOLUME 97 fL (79-100); MONO % 2 % (0-9); NEUT % 93 % (31-73); PLATELET COUNT 223 x10^3/uL (140-400); RED BLOOD COUNT 3.84 x10^6/uL (3.50-5.40); RED CELL DISTRIBUTION WIDTH 15.4 % (11.5-14.5); WHITE BLOOD COUNT 9.8 x10^3/uL (4.0-11.0)
[2017-06-24 09:24] LABS: CALCIUM 8.7 mg/dL (8.5-10.1); CREATININE 0.9 mg/dL (0.6-1.0); POTASSIUM 3.6 mmol/L (3.5-5.1)
[2017-06-24 09:33] LABS: ALBUMIN 3.2 g/dL (3.4-5.0); DIRECT BILIRUBIN 0.1 mg/dL (0.0-0.2); TOTAL BILIRUBIN 0.4 mg/dL (0.2-1.0); TOTAL PROTEIN 6.5 g/dL (6.4-8.2)
--- NOTE | 2017-06-24 09:56 | RAD ---
Indication: Left shoulder pain, fall. Time of exam 0946 hours. Glenohumeral and acromial clavicular alignment are normal. Acromiohumeral space is normal. No fracture or dislocation is seen. Impression: No acute bony abnormality is detected.
--- NOTE | 2017-06-24 09:58 | RAD ---
Indication: Fall with bilateral hip pain. Time of exam 0946 hours. Correlation is made with prior exam from 03/26/2017. Bilateral hip arthroplasties are noted. There appears to be some dystrophic or heterotopic ossification adjacent to the left hip. No fractures are seen. The rami appear intact. Impression: No acute feature detected.
--- NOTE | 2017-06-24 10:01 | RAD ---
Indication: Fall with bilateral elbow pain. Time of exam 0946 hours. Multiple views of bilateral elbows were obtained. Postsurgical changes to the right elbow are identified. There is a partially threaded screw extending through the distal humerus. The radial head is subluxed slightly anteriorly, chronicity indeterminate. There are severe degenerative changes at the elbow with marked joint space narrowing and spurring present. Left elbow demonstrates a plate and screws transfixing the distal humerus. Elbow alignment is normal. No acute fracture is seen. The hardware is intact. Impression: Postsurgical changes bilaterally. There are severe degenerative changes to the right elbow. There is subluxation of the right radial head in relation to the capitulum, chronicity indeterminate. No fractures are seen.
--- NOTE | 2017-06-24 10:17 | RAD ---
Indication: Fall with altered mental status. Axial imaging through the brain and cervical spine was performed without contrast. Sagittal and coronal reformations were also performed. CT brain: Comparison is made with prior CT from 04/21/2017. The ventricular size and sulcal pattern are stable. Moderate periventricular hypodensity is noted consistent with senescent change. No sulcal effacement, midline shift or hemorrhage is detected. The cisterns are patent. The visualized paranasal sinuses are clear. Impression: Senescent change. No acute intracranial process is detected. CT cervical spine: Curvature and alignment is normal. There is generalized demineralization. Multilevel degenerative disc disease with disc space narrowing and marginal spurring is noted. The prevertebral tissues are normal. No fractures are seen. The odontoid appears intact. Impression: Cervical spondylosis. No acute bony abnormality is detected. PQRS Compliance Statement: One or more of the following individualized dose reduction techniques were utilized for this examination: 1. Automated exposure control 2. Adjustment of the mA and/or kV according to patient size 3. Use of iterative reconstruction technique
[2017-06-24 10:31] LABS: BILIRUBIN,URINE NEGATIVE (NEG); GLUCOSE,URINE NEGATIVE (NEG); NITRITE,URINE NEGATIVE (NEG); PROTEIN,URINE NEGATIVE (NEG-TRACE); UROBILINOGEN,URINE 0.2 mg/dL (0.2 mg/dL)
[2017-06-24] MEDS ORDERED: ACET325T9 PO (10:44)
--- NOTE | 2017-06-24 10:50 | EKG ---
[facility] [address] [place] [address] Test Date: 2017-06-24 Test Time: 08:59:36 Pat Name: PIA REINOSO Department: Room: Gender: F Application Tester: : 1930 Requested By: RYANN HEREDIA Order Number: [id number] Reading MD: Measurements Intervals [place] Rate: 76 P: 36 CT: 122 QRS: -20 QRSD: 74 T: 8 QT: 426 QTc: 484 Interpretive Statements SINUS RHYTHM LEFTWARD AXIS CONSIDER LEFT VENTRICULAR HYPERTROPHY NON SPECIFIC T ABNORMALITY PROLONGED QT POSSIBLY ABNORMAL ECG No previous ECG available for comparison
[2017-06-24 11:04] LABS: BACTERIA,URINE 0 /HPF (0-FEW); RBC,URINE RARE /HPF (0-2); SQUAMOUS EPITHELIAL CELL,UR FEW /LPF; WBC,URINE 0 /HPF (0-4)
[2017-06-24 12:01] VITALS: BP 184/103
[2017-06-24 12:45] LABS: % EOS 1 % (0-5); PLT ESTIMATE ADEQUATE (ADEQUATE)
== END 2017-06-24 12:34 | disposition home or self-care (01) ==
LOC: ER 08:42
DX: S50.02XA Contusion of left elbow, initial encounter (principal); S50.01XA Contusion of right elbow, initial encounter; S70.02XA Contusion of left hip, initial encounter; S40.022A Contusion of left upper arm, initial encounter; K21.9 Gastro-esophageal reflux disease without esophagitis; I10 Essential (primary) hypertension; E78.00 Pure hypercholesterolemia, unspecified; E03.9 Hypothyroidism, unspecified; E78.5 Hyperlipidemia, unspecified; Z96.643 Presence of artificial hip joint, bilateral; F32.9 Major depressive disorder, single episode, unspecified; Z88.8 Allergy status to other drugs, medicaments and biological substances; W18.39XA Other fall on same level, initial encounter; Y93.89 Activity, other specified; Y99.8 Other external cause status; Y92.89 Other specified places as the place of occurrence of the external cause
CPT/HCPCS: 36415; 51701; 70450; 72125; 73030; 73080; 73521; 80048; 80076; 81001; 84484; 85025; 93005; 96360; 99285; J7040; 85007

== ENCOUNTER 2017-10-18 22:08 | Emergency (ER) | payer MEDICARE, OTHER ==
[2017-10-18] MEDS: HYDROcodone/APAP 5/325MG 1 TAB TABLET PO (22:56)
== END 2017-10-18 23:15 | disposition home or self-care (01) ==
LOC: ER 23:15
DX: S42.034A Nondisplaced fracture of lateral end of right clavicle, initial encounter for closed fracture (principal); E78.00 Pure hypercholesterolemia, unspecified; F03.90 Unspecified dementia, unspecified severity, without behavioral disturbance, psychotic disturbance, mood disturbance, and anxiety; E03.9 Hypothyroidism, unspecified; G20 Parkinson's disease; K21.9 Gastro-esophageal reflux disease without esophagitis; I10 Essential (primary) hypertension; Z96.649 Presence of unspecified artificial hip joint; Z88.8 Allergy status to other drugs, medicaments and biological substances; Z88.2 Allergy status to sulfonamides; M19.90 Unspecified osteoarthritis, unspecified site; W18.39XA Other fall on same level, initial encounter; Y93.89 Activity, other specified; Y99.8 Other external cause status; Y92.89 Other specified places as the place of occurrence of the external cause
CPT/HCPCS: 99284; 99284-25; 99285-25